=== PATIENT | female | born 1955 | race Hispanic/Latino ===

== ENCOUNTER 2017-11-28 07:34 | Day surgery (SDC) | payer BC ==
[2017-11-22 06:34] VITALS: BMI 44.2
[2017-11-28 08:59] LABS: BASO # 0.03 K/mm3 (0.0-2.0); BASO % 0.4 % (0.0-3.0); EOS # 0.4 (0.0-0.7); EOS % 4.2 % (1.5-5.0); GRAN # 5.15 (1.4-6.5); GRAN % 61.1 % (50.0-68.0); HEMOGLOBIN 12.3 g/dL (12.0-16.0); LYMPH # 2.3 (1.2-3.4); LYMPH % 27.4 % (22.0-35.0); MEAN CELL VOLUME 81.9 fl (80.0-105.0); MEAN CORPUSCULAR HEMOGLOBIN 25.9 pg (25.0-35.0); MEAN CORPUSCULAR HGB CONC 31.6 g/dl (31.0-37.0); MEAN PLATELET VOLUME 9.8 fl (7.0-11.0); MONO # 0.6 (0.1-0.6); MONO % 6.9 % (1.0-6.0); RBC 4.75 10^6/uL (3.5-6.1); RED CELL DISTRIBUTION WIDTH 15.2 % (11.5-14.5); WHITE BLOOD COUNT 8.4 10^3/ul (4.5-11.0)
[2017-11-28 09:03] LABS: INR 1.08 (0.93-1.08); PARTIAL THROMBOPLASTIN TIME 29.3 Seconds (25.1-36.5); PROTHROMBIN TIME 12.4 SECONDS (9.4-12.5)
[2017-11-28 09:06] LABS: BLOOD UREA NITROGEN 16 mg/dL (7-21); CALCIUM 9.3 mg/dL (8.4-10.5); GFR AFRICAN-AMERICAN > 60; GFR NON-AFRICAN AMERICAN > 60; HDL CHOLESTEROL 40 mg/dL (29-60)
[2017-11-28 09:16] LABS: LDL CHOLESTEROL 93 mg/dL (0-129)
[2017-11-28] MEDS ORDERED: Iodixanol 320 MG/ML 200 ML BOTTLE IV ONE (10:20)
[2017-11-28] MEDS ORDERED: Lidocaine 2 GM/50 ML Vial (4%) IV ONE (10:20)
[2017-11-28] MEDS ORDERED: Adenosine 90 mg/30mL IV ONE (10:20)
[2017-11-28] MEDS ORDERED: Verapamil 2 ML ONE (10:25)
[2017-11-28] MEDS ORDERED: Midazolam 2 MG/2 ML VIAL ONE ×2 (10:40→11:09)
[2017-11-28 11:56] VITALS: RESP 18; TEMP 98
--- NOTE | 2017-11-28 12:01 | CARDCATH ---
PROCEDURE DATE: 11/28/2017 INDICATIONS: Faith Ross is a 62-year-old female who underwent a cardiac catheterization for evaluation of symptoms of recurrent chest pain with left bundle-branch block. PROCEDURE PERFORMED: Left heart catheterization with selective left and right coronary angiogram via left distal radial arterial access approach, selective left and right coronary angiogram, left ventriculogram, wrist band for hemostasis. TECHNIQUES OF PROCEDURE: After obtaining informed consent, the patient was brought to the cardiac cath suite in post-absorptive, non-sedated state. The patient was prepped and draped in the usual sterile fashion. A 2% lidocaine was used for infiltration of anesthesia. Using modified Seldinger technique, a 6-Icelandic sheath was introduced into the left distal radial artery. Subsequently, under fluoroscopic guidance, JR4 and JL4 diagnostic catheters were used to engage the right and left coronary systems. The angiograms were obtained in different orthogonal views. Subsequently, over a J-wire, pigtail catheter was advanced across the aorta into the LV. LV gram was obtained in the VALLADARES view. Hemodynamics were obtained and pullback gradients were noted. HEMODYNAMIC FINDINGS: Left ventricular end-diastolic pressure was 18 mmHg. There was no gradient noted upon the aortic valve pullback. There was no AI, no MR. Left ventricular ejection fraction estimated to be 60%-65%. CORONARY ANATOMY: Left main large-sized vessel, bifurcates into LAD and left circumflex coronary artery. Left circumflex runs in the AV groove. Continues as a small-size branch after giving off a large-sized obtuse marginal branch, which distally gives off few other branches. LAD is a large-sized vessel, comes off the left main, gives off 2 small-sized septal perforators and two medium-sized diagonal branches. Type 1 LAD falls short of the apex of the heart. Right coronary artery is a large-sized vessel, distally bifurcates into PDA and PLV branches with no obstructive disease. IMPRESSION: Normal coronaries, mildly elevated end diastolic pressure consistent with possible diastolic dysfunction. Normal left ventricular ejection fraction. RECOMMENDATIONS: The patient can be discharged home in 4 hours. Continue the patient's home prior medications. The patient to undergo further evaluation for possible peptic ulcer disease with EGD. Thank you, Dr. Douglas for letting me participate in the care of your patient. Chito Robert MD [facility] # [id number]
[2017-11-28 12:14] VITALS: O2SAT 94
[2017-11-28] MEDS ORDERED: Bacitracin 500 Units/gm Oint Foilpak UD TOP ONE (12:40)
[2017-11-28] MEDS ORDERED: Sodium Chloride 0.9% 1,000 ML IV SCH (12:45)
[2017-11-28 14:16] VITALS: BP 112/61; PULSE 69
[2017-11-28] MEDS ORDERED: Bacitracin 500 Units/gm Oint Foilpak UD ONE (15:08)
--- NOTE | 2017-11-28 16:37 | CARD ---
APPROVED REPORT Date of service: 11/28/2017 EKG Measurement Heart [id number] <Conclusion> Normal sinus rhythm Left bundle branch block Abnormal ECG
== END 2017-11-28 15:50 | disposition home or self-care (01) ==
LOC: CATH 07:34
PROVIDERS: ATTEND Internal Medicine Interventional Cardiology
DX: I20.0 Unstable angina (principal); E78.5 Hyperlipidemia, unspecified; I44.7 Left bundle-branch block, unspecified
CPT/HCPCS: 36415; 80048; 80061; 85025; 85610; 85730; 86850; 86900; 93005; 93458; 99152; 99153; C1769; C1887 ×2; J0153; J1644 ×2; J2250; J3010; J7030; Q9966